=== PATIENT | female | born 1990 | race Caucasian/White ===

== ENCOUNTER 2022-10-14 12:04 | Emergency (ER) | payer BC ==
[2022-10-14 12:54] VITALS: BP 129/71; PULSE 67; RESP 20; TEMP 97.4
[2022-10-14] MEDS ORDERED: SODIUM CHLORIDE 0.9% 1,000 ML IV STA (14:19)
[2022-10-14] MEDS ORDERED: ONDANSETRON 4 MG/2 ML VIAL IVP STA (14:19)
--- NOTE | 2022-10-14 14:23 | ED ---
Nausea/Vomiting/Diarrhea HPI - General Chief complaint: Nausea/Vomiting/Diarrhea Stated complaint: dehydration, 14 wks preg Time Seen by Provider: 10/14/22 14:16 Source: patient, RN notes reviewed, old records reviewed Mode of arrival: ambulatory Limitations: no limitations - History of Present Illness Initial comments: This is a well-appearing 32-year-old female that presents to the emergency room with nausea and vomiting for the past 2 days. She is 14 weeks denies any vaginal bleeding or vaginal discharge. No abdominal pain. No fevers, cough or shortness of breath. She states that her son has been sick with a viral illness as well. She did call her BOTTLE WASHER MACHINE who recommended she come in for IV fluids. She is a . No other medical history. MD complaint: nausea, vomiting -: days(s) (2) Description of Vomiting: watery Associated Abdominal Pain: No Severity scale (1-10): 0 Context: sick contacts Associated Symptoms: nausea/vomiting - Related Data Home Medications Medication Instructions Recorded Confirmed Citalopram Hydrobromide [CeleXA] 10 mg PO DAILY 10/14/22 10/14/22 Usj-Joco-Qsfca Acid 1 cap PO DAILY 10/14/22 10/14/22 [-U Capsule (formulary)] Previous Rx's Medication Instructions Recorded Cephalexin [Keflex] 500 mg PO TID 5 Days #15 cap 10/14/22 Allergies Allergy/AdvReac Type Severity Reaction Status Date / Time No Known Allergies Allergy Verified 10/14/22 15:09 Review of Systems ROS Statement: Those systems with pertinent positive or pertinent negative responses have been documented in the HPI. ROS Other: All systems not noted in ROS Statement are negative. Past Medical History Past Medical History: No Reported History History of Any Multi-Drug Resistant Organisms: None Reported Past Surgical History: Section Past Psychological History: No Psychological Hx Reported Smoking Status: Never smoker Past Alcohol Use History: None Reported Past Drug Use History: None Reported General Exam Limitations: no limitations General appearance: alert, in no apparent distress Head exam: Present: atraumatic, normocephalic Eye exam: Present: normal appearance. Absent: scleral icterus, conjunctival injection, periorbital swelling, periorbital tenderness Neck exam: Present: full ROM. Absent: tenderness, meningismus Respiratory exam: Present: normal lung sounds bilaterally. Absent: respiratory distress, wheezes, rales, rhonchi, stridor, chest wall tenderness, accessory mus chantell use Cardiovascular Exam: Present: regular rate GI/Abdominal exam: Present: soft. Absent: distended, tenderness, rigid Extremities exam: Present: normal capillary refill. Absent: pedal edema Back exam: Present: full ROM. Absent: tenderness, CVA tenderness (R), CVA tenderness (L) Neurological exam: Present: alert, oriented X3 Psychiatric exam: Present: normal affect, normal mood Skin exam: Present: warm, dry, normal color. Absent: cyanosis, diaphoretic, petechiae, pallor Course Vital Signs 10/14/22 12:50 Temperature 97.4 F L Pulse Rate 67 Respiratory 20 Rate Blood Pressure 129/71 O2 Sat by Pulse 99 Oximetry Medical Decision Making - Medical Decision Making 32-year-old well-appearing female presents with nausea and vomiting for the past 2 days. 14 weeks , denies any vaginal bleeding or vaginal discharge. No abdominal pain. No fevers, cough or shortness of breath. She states that her son has been sick with a viral illness as well. BOTTLE WASHER MACHINE recommended she come in for IV fluids. Labs show no evidence of leukocytosis. Hemoglobin and hematocrit are stable. Electrolytes are unremarkable. Coronavirus negative. Urinalysis shows bacteria and therefore patient will be placed on Keflex for asymptomatic bacteriuria. Patient was given IV fluids and Zofran. No further vomiting or nausea. She was given a take home pack of Zofran for her nausea. Encouraged to increase her fluid intake. Follow-up with her primary doctor. She is agreeable to this plan of care. Case discussed with Dr. Dominguez - Lab Data Result diagrams: 10/14/22 14:45 10/14/22 14:45 Lab Results 10/14/22 10/14/22 10/14/22 Range/Units 14:14 14:45 14:45 WBC 5.3 (3.8-10.6) k/uL RBC 4.20 (3.80-5.40) m/uL Hgb 13.2 (11.4-16.0) gm/dL Hct 37.2 (34.0-46.0) % MCV 88.6 (80.0-100.0) fL MCH 31.6 (25.0-35.0) pg MCHC 35.6 (31.0-37.0) g/dL RDW 12.5 (11.5-15.5) % Plt Count 226 (150-450) k/uL MPV 7.7 Neutrophils % 80 % Lymphocytes % 11 % Monocytes % 6 % Eosinophils % 1 % Basophils % 0 % Neutrophils # 4.3 (1.3-7.7) k/uL Lymphocytes # 0.6 L (1.0-4.8) k/uL Monocytes # 0.3 (0-1.0) k/uL Eosinophils # 0.0 (0-0.7) k/uL Basophils # 0.0 (0-0.2) k/uL Sodium 135 L (137-145) mmol/L Potassium 3.8 (3.5-5.1) mmol/L Chloride 106 (98-107) mmol/L Carbon Dioxide 24 (22-30) mmol/L Anion Gap 5 mmol/L BUN 5 L (7-17) mg/dL Creatinine 0.42 L (0.52-1.04) mg/dL Est GFR (CKD-EPI)AfAm >90 (>60 ml/min/1.73 sqM) Est GFR (CKD-EPI)NonAf >90 (>60 ml/min/1.73 sqM) Glucose 92 (74-99) mg/dL Calcium 8.8 (8.4-10.2) mg/dL Total Bilirubin 0.5 (0.2-1.3) mg/dL AST 53 H (14-36) U/L ALT 55 H (4-34) U/L Alkaline Phosphatase 66 (38-126) U/L Total Protein 6.3 (6.3-8.2) g/dL Albumin 3.8 (3.5-5.0) g/dL Amylase 44 (30-110) U/L Lipase 151 (23-300) U/L Urine Color Yellow Urine Appearance Cloudy H (Clear) Urine pH 5.5 (5.0-8.0) Ur Specific [place] 1.027 (1.001-1.035) Urine Protein 1+ H (Negative) Urine Glucose (UA) Negative (Negative) Urine Ketones 2+ H (Negative) Urine Blood Negative (Negative) Urine Nitrite Negative (Negative) Urine Bilirubin Negative (Negative) Urine Urobilinogen 3.0 (<2.0) mg/dL Ur Leukocyte Esterase Negative (Negative) Urine RBC 2 (0-5) /hpf Urine WBC 4 (0-5) /hpf Ur Squamous Epith Cells 4 (0-4) /hpf Urine Bacteria Many H (None) /hpf Urine Mucus Many H (None) /hpf Coronavirus (PCR) (Not Detectd) 10/14/22 Range/Units 14:59 WBC (3.8-10.6) k/uL RBC (3.80-5.40) m/uL Hgb (11.4-16.0) gm/dL Hct (34.0-46.0) % MCV (80.0-100.0) fL MCH (25.0-35.0) pg MCHC (31.0-37.0) g/dL RDW (11.5-15.5) % Plt Count (150-450) k/uL MPV Neutrophils % % Lymphocytes % % Monocytes % % Eosinophils % % Basophils % % Neutrophils # (1.3-7.7) k/uL Lymphocytes # (1.0-4.8) k/uL Monocytes # (0-1.0) k/uL Eosinophils # (0-0.7) k/uL Basophils # (0-0.2) k/uL Sodium (137-145) mmol/L Potassium (3.5-5.1) mmol/L Chloride (98-107) mmol/L Carbon Dioxide (22-30) mmol/L Anion Gap mmol/L BUN (7-17) mg/dL Creatinine (0.52-1.04) mg/dL Est GFR (CKD-EPI)AfAm (>60 ml/min/1.73 sqM) Est GFR (CKD-EPI)NonAf (>60 ml/min/1.73 sqM) Glucose (74-99) mg/dL Calcium (8.4-10.2) mg/dL Total Bilirubin (0.2-1.3) mg/dL AST (14-36) U/L ALT (4-34) U/L Alkaline Phosphatase (38-126) U/L Total Protein (6.3-8.2) g/dL Albumin (3.5-5.0) g/dL Amylase (30-110) U/L Lipase (23-300) U/L Urine Color Urine Appearance (Clear) Urine pH (5.0-8.0) Ur Specific [place] (1.001-1.035) Urine Protein (Negative) Urine Glucose (UA) (Negative) Urine Ketones (Negative) Urine Blood (Negative) Urine Nitrite (Negative) Urine Bilirubin (Negative) Urine Urobilinogen (<2.0) mg/dL Ur Leukocyte Esterase (Negative) Urine RBC (0-5) /hpf Urine WBC (0-5) /hpf Ur Squamous Epith Cells (0-4) /hpf Urine Bacteria (None) /hpf Urine Mucus (None) /hpf Coronavirus (PCR) Not Detected (Not Detectd) Disposition Clinical Impression: Asymptomatic bacteriuria during , Nausea/vomiting in Disposition: HOME SELF-CARE Condition: Good Instructions (If sedation given, give patient instructions): Acute Nausea and Vomiting (ED), Urinary Tract Infection in (ED) Additional Instructions: Increase your fluid intake. Take the antibiotics as prescribed for the bact eria found in your urine. Follow-up with your BOTTLE WASHER MACHINE. Return to the emergency room with any new or concerning symptoms. Prescriptions: Cephalexin [Keflex] 500 mg PO TID 5 Days #15 cap Is patient prescribed a controlled substance at d/c from ED?: No Referrals: Lisa Kc MD [STAFF PHYSICIAN] - 1-2 days Time of Disposition: 15:30
[2022-10-14 14:28] LABS: Appearance,Urine Cloudy (Clear); Bacteria,Urine Many /hpf; Bilirubin,Urine Negative (Negative); Blood,Urine Negative (Negative); Color,Urine Yellow; Glucose,Urine (UA) Negative (Negative); Ketones,Urine 2+ (Negative); Leukocyte Esterase,Urine Negative (Negative); Mucus,Urine Many /hpf; Nitrite,Urine Negative (Negative); PH, Urine 5.5 (5.0-8.0); Protein,Urine 1+ (Negative); RBC,Urine 2 /hpf (0-5); Specific Gravity,Urine 1.027 (1.001-1.035); Squamous Epithelial Cell,Urine 4 /hpf (0-4); WBC,Urine 4 /hpf (0-5)
[2022-10-14 14:54] LABS: Basophils % (A) 0 %; Eosinophils % (A) 1 %; HCT 37.2 % (34.0-46.0); HGB 13.2 gm/dL (11.4-16.0); Lymphocytes # (A) 0.6 k/uL (1.0-4.8); Lymphocytes % (A) 11 %; MCH 31.6 pg (25.0-35.0); MCHC 35.6 g/dL (31.0-37.0); MCV 88.6 fL (80.0-100.0); Mean Platelet Volume 7.7; Monocytes # (A) 0.3 k/uL (0-1.0); Monocytes % (A) 6 %; Neutrophils # (A) 4.3 k/uL (1.3-7.7); Neutrophils % (A) 80 %; Platelet Count 226 k/uL (150-450); RDW 12.5 % (11.5-15.5); WBC 5.3 k/uL (3.8-10.6)
[2022-10-14 15:05] LABS: ALT 55 U/L (4-34); AST 53 U/L (14-36); African American GFR (CKD) >90 (>60 ml/min/1.73 sqM); Albumin 3.8 g/dL (3.5-5.0); Alkaline Phosphatase 66 U/L (38-126); Amylase 44 U/L (30-110); Anion Gap 5 mmol/L; Blood Urea Nitrogen 5 mg/dL (7-17); Calcium 8.8 mg/dL (8.4-10.2); Carbon Dioxide 24 mmol/L (22-30); Chloride 106 mmol/L (98-107); Glucose 92 mg/dL (74-99); Lipase 151 U/L (23-300); Non-African American GFR(CKD) >90 (>60 ml/min/1.73 sqM); Potassium 3.8 mmol/L (3.5-5.1); Sodium 135 mmol/L (137-145); Total Bilirubin 0.5 mg/dL (0.2-1.3); Total Protein 6.3 g/dL (6.3-8.2)
[2022-10-14] MEDS ORDERED: ONDANSETRON 4 MG ODT STARTER PACK 2 TAB BTL PO STA (15:49)
== END 2022-10-14 15:54 | disposition home or self-care (01) ==
LOC: EC 12:04
DX: O23.92 Unspecified genitourinary tract infection in pregnancy, second trimester (principal); O21.9 Vomiting of pregnancy, unspecified; Z20.822 Contact with and (suspected) exposure to COVID-19; Z3A.14 14 weeks gestation of pregnancy
CPT/HCPCS: 99284; 96374; 96361; 36415; 80053; 82150; 83690; 85025; 81001; 87635; J2405; S0119

== ENCOUNTER 2023-04-07 06:02 | Inpatient (IN) | payer BC ==
--- NOTE | 2023-04-04 07:37 | P.HPOB ---
History of Present Illness H&P Date: 04/04/23 Chief Complaint: Repeat section This patient is a pleasant 33-year-old 4 para 2 female estimated date of confinement 04/14/2023 estimated gestational age 39-0/7 weeks gestation who is admitted to labor and delivery for repeat section. She has had 2 previous section desires repeat. has been uncomplicated. She has been on low-dose aspirin due to history of gestational hypertension with her first . Blood pressures have been normal this . Review of Systems Genitourinary: Reports Menstruation: Reports amenorrhea Past Medical History Past Medical History: No Reported History History of Any Multi-Drug Resistant Organisms: None Reported Past Surgical History: Section Past Anesthesia/Blood Transfusion Reactions: No Reported Reaction Past Psychological History: No Psychological Hx Reported Smoking Status: Never smoker Past Alcohol Use History: None Reported Past Drug Use History: None Reported Medications and Allergies Home Medications Medication Instructions Recorded Confirmed Type Cephalexin [Keflex] 500 mg PO TID 5 Days #15 cap 10/14/22 Rx Citalopram Hydrobromide [CeleXA] 10 mg PO DAILY 10/14/22 10/14/22 History Nnb-Xabi-Oyxce Acid 1 cap PO DAILY 10/14/22 10/14/22 History [-U Capsule (formulary)] Allergies Allergy/AdvReac Type Severity Reaction Status Date / Time No Known Allergies Allergy Verified 10/14/22 15:09 Exam - OBG Physical Exam Abdomen: bowel sounds normal, no diffuse tenderness, no bruit present, no guarding noted, no hepatomegaly, no splenomegaly, no mass Vulva: both: normal Vagina: normal moisture, no discharge Cervix: no lesion, no discharge Uterus: enlarged Results labs show she is B positive, rubella immune, RPR nonreactive, hepatitis B is negative, HIV is nonreactive, hepatitis C is negative, Glucola was normal, group B strep was negative, most recent ultrasound showed baby to be 6 lbs. 1 oz. and that was at 35 weeks. Assessment and Plan Assessment: This is a pleasant 33-year-old 4 para 2 female 39-0/7 weeks gestation admitted to labor and delivery for elective repeat section. Plan is repeat low transverse section. I discussed the surgery with the patient in detail including the risks of infection, bleeding, possible injury bowel, bladder, vessels, and/or other organs. All the patient's questions are answered and a written consent is obtained. (1) 39 weeks gestation of Status: Acute Code(s): Z3A.39 - 39 WEEKS GESTATION OF SNOMED Code(s): 18795817 (2) Previous delivery affecting Status: Acute Code(s): O34.219 - MATERNAL CARE FOR UNSP TYPE SCAR FROM PREVIOUS DEL SNOMED Code(s): 596728692
[2023-04-07] MEDS ORDERED: OXYTOCIN 10 UNIT/ML 1 ML VIAL IM PRN (06:20)
[2023-04-07] MEDS ORDERED: miSOPROStoL 200 MCG TAB PO PRN (06:20)
[2023-04-07] MEDS ORDERED: CARBOPROST TROMETHAMINE 250 MCG/ML 1 ML AMP IM PRN (06:20)
[2023-04-07] MEDS ORDERED: LACTATED RINGERS 1,000 ML IV ONE (06:20)
[2023-04-07] MEDS ORDERED: METHYLERGONOVINE 0.2 MG/ML 1 ML AMP IM PRN (06:20)
[2023-04-07] MEDS ORDERED: TRANEXAMIC ACID IN NACL,ISO-OS 1,000 MG in EMPTY BAG 1 BAG IV PRN (06:20)
[2023-04-07] MEDS ORDERED: CITRIC ACID-SODIUM CITRATE 15 ML CUP PO ONE (06:20)
[2023-04-07] MEDS ORDERED: LACTATED RINGERS 1,000 ML IV SCH (06:20)
[2023-04-07 07:38] LABS: Basophils % (A) 0 %; Eosinophils # (A) 0.1 k/uL (0-0.7); Eosinophils % (A) 1 %; HCT 35.2 % (34.0-46.0); HGB 12.2 gm/dL (11.4-16.0); Lymphocytes # (A) 1.1 k/uL (1.0-4.8); Lymphocytes % (A) 17 %; MCHC 34.6 g/dL (31.0-37.0); MCV 92.4 fL (80.0-100.0); Mean Platelet Volume 8.5; Monocytes # (A) 0.5 k/uL (0-1.0); Monocytes % (A) 7 %; Neutrophils # (A) 4.9 k/uL (1.3-7.7); Neutrophils % (A) 72 %; Platelet Count 199 k/uL (150-450); RBC 3.81 m/uL (3.80-5.40); RDW 13.8 % (11.5-15.5); WBC 6.9 k/uL (3.8-10.6)
[2023-04-07] MEDS ORDERED: ONDANSETRON 4 MG/2 ML VIAL ONE (07:52)
[2023-04-07] MEDS ORDERED: MORPHINE SULFATE (PF) 0.3 MG/0.3 ML SYR ONE (07:52)
[2023-04-07] MEDS ORDERED: KETOROLAC 30 MG/ML 1 ML VIAL ONE (07:52)
[2023-04-07] MEDS ORDERED: OXYTOCIN 30 UNITS/500 ML NS BAG IV ONE (07:52)
[2023-04-07] MEDS ORDERED: fentaNYL (PF) 50 MCG/ML 2 ML AMP ONE (07:52)
[2023-04-07] MEDS ORDERED: PHENYLEPHRINE-0.9% NACL SYG 1,000 MCG/10 ML SYRINGE ONE (07:52)
[2023-04-07] MEDS ORDERED: ONDANSETRON 4 MG/2 ML VIAL IVP PRN ×2 (08:23→14:18)
[2023-04-07] MEDS ORDERED: diphenhydrAMINE 50 MG/ML 1 ML VIAL IVP PRN ×2 (08:23→14:18)
[2023-04-07] MEDS ORDERED: KETOROLAC 15 MG/ML 1 ML VIAL IVP PRN (08:23)
[2023-04-07] MEDS ORDERED: NALOXONE 0.4 MG/ML 1 ML VIAL IV PRN ×2 (08:23→14:18)
[2023-04-07] MEDS ORDERED: HYDROmorphone 0.5 MG/0.5 ML SYRINGE IVP PRN (08:23)
--- NOTE | 2023-04-07 08:43 | P.OP ---
Date of Procedure: 04/07/23 Preoperative Diagnosis: #1: 39 0/7 weeks . #2: Previous section desires repeat. Postoperative Diagnosis: Same Procedure(s) Performed: Repeat low transverse section Anesthesia: spinal Surgeon: Stevan Kruger Diamond Wheel Edger #1: Sherly Pinedo Estimated Blood Loss (ml): 600 Pathology: none sent Condition: stable Disposition: floor Indications for Procedure: Please see dictated H&P for intimate details of this patient's admission. In brief summary this is a pleasant 33-year-old 4 para 2 female 39-0/7 weeks gestation admitted to labor and delivery for elective repeat section. Patient understands this surgery and risks and risks of infection, bleeding, possible injury bowel, bladder, vessels, and/or other organs. All the patient's questions are answered and a written consent is obtained. Operative Findings: This is a vigorous viable female Apgars 9 and 9 delivery time is 0808 hrs. has spontaneous respiration good cry and grossly appeared normal Description of Procedure: This patient has a Shane catheter placed to straight drain. She is subsequently taken to the operating room where she sat up and spinal anesthetic is administered without incident. She has abdominal prep and drape. After the appropriate timeout, scalpels and taken in the previous Pfannenstiel incision is then incised. A second scalpel is taken down the fascia the fascia scored with a knife. Fascial incision extended bilaterally using the Cummings scissors. The fascia is then dissected off the rectus muscles sharply. Rectus muscles are and the peritoneum identified and entered sharply. Peritoneal incision extended superior and inferior without difficulty. Bladder blade is then placed. Bladder pain to Adeline was taken sharply off the lower uterine segment. Scalpel is then taken and a low transverse uterine incision is made. Using a hemostat I into the uterine cavity bluntly and there is loss of a copious amount of clear fluid. Incision is extended bluntly. The infant's head is then guided through the incision with fundal pressure and delivered. Mouth and nares are bulb suctioned. There is no evidence of a nuchal cord. With more fundal pressure with delivery and rest this 's body. This is a vigorous viable female infant Apgars are 9 and 9 delivery time is 0808 hrs. After delivery of the the umbilical cord is doubly clamped and cut infant is handed off to the nurses in attendance. The placenta is then manually extracted intact. Uterine incision is then demarcated with Valdez clamps and closed using 0 Vicryl running locked fashion 2 layers. Excellent hemostasis is noted. Bladder peritoneum was then reapproximated using a 3-0 Vicryl. Excess fluid is removed from the abdomen and pelvis. Uterus, tubes, ovaries appear normal for term gestation. Uterus is then placed back into the abdomen. The parietal peritoneum was then identified and entered sharply. The rectus muscles reapproximated using 0 Vicryl interrupted fashion. Fascial incision then closed using 0 PDS. Fascial incision is intact and hemostatic. Subcutaneous tissues and closed using a 3-0 Vicryl. Skin is and closed using mateus. All counts are correct 3. There are no complications. and mother are taken together birthing suite in satisfactory condition.
[2023-04-07] MEDS ORDERED: diphenhydrAMINE 25 MG CAP PO PRN (14:18)
[2023-04-07] MEDS ORDERED: METOCLOPRAMIDE 5 MG/ML 2 ML VIAL IVP PRN (14:18)
[2023-04-07] MEDS ORDERED: SIMETHICONE 80 MG CHEWABLE PO PRN (14:18)
[2023-04-07] MEDS ORDERED: ZOLPIDEM 5 MG TAB PO PRN (14:18)
[2023-04-07] MEDS ORDERED: LANOLIN CREAM 5 GM TUBE TOPICAL PRN (14:18)
[2023-04-07] MEDS ORDERED: OXYTOCIN 30 UNITS/500 ML NS 30 UNIT in SALINE 1 500ML.BAG IV SCH (14:18)
[2023-04-07] MEDS: LACTATED RINGERS 1,000 ML IV SCH ×2 (19:20→22:29)
[2023-04-07] MEDS: ACETAMINOPHEN TAB 500 MG TAB PO SCH (19:21)
[2023-04-07] MEDS: SENNOSIDES-DOCUSATE SODIUM 1 EACH TAB PO SCH ×2 (19:21→19:41)
[2023-04-07] MEDS: IBUPROFEN 600 MG TAB PO SCH (19:22)
[2023-04-07] MEDS: KETOROLAC 15 MG/ML 1 ML VIAL IVP SCH (19:41)
[2023-04-08] MEDS: ACETAMINOPHEN TAB 500 MG TAB PO SCH ×4 (00:25→18:06)
[2023-04-08] MEDS: KETOROLAC 15 MG/ML 1 ML VIAL IVP SCH ×2 (04:19→21:59)
[2023-04-08] MEDS: IBUPROFEN 600 MG TAB PO SCH ×4 (04:27→22:54)
--- NOTE | 2023-04-08 06:12 | P.PNOBGPC ---
Subjective - Subjective Patient reports: Reports appetite normal, Reports voiding normally, Reports pain well controlled, Reports ambulating normally : doing well Objective - Vital Signs Latest vital signs: Vital Signs Temp Pulse Resp BP Pulse Ox 04/08/23 04:00 97.8 F 61 16 118/73 98 04/08/23 00:00 98.1 F 62 16 125/75 99 04/07/23 19:00 98.1 F 59 L 16 120/77 96 04/07/23 17:00 16 98 04/07/23 15:29 97.4 F L 54 L 16 120/65 98 04/07/23 15:00 16 04/07/23 12:00 97.2 F L 60 16 115/63 98 04/07/23 11:17 16 04/07/23 10:50 51 L 16 112/65 98 04/07/23 10:15 97.0 F L 53 L 16 124/65 98 04/07/23 09:40 98.2 F 65 16 98 04/07/23 09:30 51 L 16 112/65 99 04/07/23 09:23 16 98 04/07/23 09:15 54 L 16 122/72 98 04/07/23 09:00 64 16 124/58 97 04/07/23 08:45 97.2 F L 56 L 16 115/67 97 04/07/23 06:57 96.5 F L 80 16 97 Intake and Output 04/07/23 04/07/23 04/08/23 14:59 22:59 06:59 Output Total 709 400 Balance -709 -400 Output: Urine 400 400 Output, Quantitative 309 Blood Loss Other: # Voids 1 - Exam Lungs: bilateral: normal Chest: Normal S1, Normal S2 Extremities: Present: normal Abdomen: Present: normal appearance, soft. Absent: distention, tenderness Incision: Present: normal, dry, intact Uterus: Present: normal, firm Assessment and Plan Assessment: Postoperative day #1. Patient is resting without complaints. Vital signs are stable and she is afebrile. Uterus is firm nontender and her incision is intact and dry. CBC is pending at time of this dictation. Patient is tolerating regular diet. Plan is to continue routine postoperative care. Allow the patient to shower, check a CBC, encourage ambulation. (1) 39 weeks gestation of Current Visit: No Status: Acute Code(s): Z3A.39 - 39 WEEKS GESTATION OF SNOMED Code(s): 30530100 (2) Previous delivery affecting Current Visit: No Status: Acute Code(s): O34.219 - MATERNAL CARE FOR UNSP TYPE SCAR FROM PREVIOUS DEL SNOMED Code(s): 446335624
[2023-04-08] MEDS: LACTATED RINGERS 1,000 ML IV SCH (06:30)
[2023-04-08 06:36] LABS: Basophils % (A) 0 %; Eosinophils # (A) 0.2 k/uL (0-0.7); Eosinophils % (A) 2 %; HCT 36.4 % (34.0-46.0); HGB 12.4 gm/dL (11.4-16.0); Lymphocytes # (A) 1.1 k/uL (1.0-4.8); Lymphocytes % (A) 13 %; MCH 32.6 pg (25.0-35.0); Mean Platelet Volume 7.9; Monocytes # (A) 0.7 k/uL (0-1.0); Monocytes % (A) 8 %; Neutrophils # (A) 6.4 k/uL (1.3-7.7); Neutrophils % (A) 75 %; Platelet Count 204 k/uL (150-450); RBC 3.79 m/uL (3.80-5.40); RDW 13.5 % (11.5-15.5); WBC 8.6 k/uL (3.8-10.6)
--- NOTE | 2023-04-08 07:46 | P.PN ---
Progress Note - Text Progress Note Date: 04/08/23 ([id number]) Anesthesia Postop day 1 Subjective: Status Post section with Duramorph. Patient seen and examined. Doing well without complaint. VAS 0. No nausea or vomiting. Mild pruritus tolerable.. Afebrile. Gross lower extremity strength intact. . Without apparent anesthetic complications. Objective: Vital signs reviewed Heart: Regular Rate Lungs: Good chest excursion Abdomen: Appears nondistended Assessment: Status post with Duramorph postop day 1 Plan: Continue current care with your medical management.
[2023-04-08] MEDS: SENNOSIDES-DOCUSATE SODIUM 1 EACH TAB PO SCH ×2 (09:35→21:58)
[2023-04-09] MEDS: ACETAMINOPHEN TAB 500 MG TAB PO SCH ×2 (00:49→09:34)
[2023-04-09] MEDS: IBUPROFEN 600 MG TAB PO SCH ×2 (05:22→11:05)
--- NOTE | 2023-04-09 06:33 | P.PNOBGPC ---
Subjective - Subjective Patient reports: Reports appetite normal, Reports voiding normally, Reports pain well controlled, Reports ambulating normally : doing well Objective - Vital Signs Latest vital signs: Vital Signs Temp Pulse Resp BP Pulse Ox 04/09/23 00:00 98.2 F 70 18 129/83 99 04/08/23 16:00 98.3 F 75 16 128/82 04/08/23 08:30 97.9 F 55 L 16 111/69 97 Intake and Output 04/08/23 04/08/23 04/09/23 14:59 22:59 06:59 Other: # Voids 1 - Exam Lungs: bilateral: normal Chest: Normal S1, Normal S2 Extremities: Present: normal Abdomen: Present: normal appearance, soft. Absent: distention, tenderness Incision: Present: normal, dry, intact Uterus: Present: normal, firm - Labs Labs: Abnormal Lab Results - Last 24 Hours (Table) 04/08/23 Range/Units 06:12 RBC 3.79 L (3.80-5.40) m/uL Assessment and Plan Assessment: Postoperative day #2. Patient is resting without complaints and wishes to go home. Vital signs are stable she's afebrile. Uterus is firm nontender and her incision is intact and dry. My impression this is a normal postoperative course. Plan is to continue routine postoperative care discharge home later today (1) 39 weeks gestation of Current Visit: No Status: Acute Code(s): Z3A.39 - 39 WEEKS GESTATION OF SNOMED Code(s): 13814450 (2) Previous delivery affecting Current Visit: No Status: Acute Code(s): O34.219 - MATERNAL CARE FOR UNSP TYPE SCAR FROM PREVIOUS DEL SNOMED Code(s): 269055943
--- NOTE | 2023-04-09 06:41 | P.DS ---
Providers Date of admission: 04/07/23 06:02 Expected date of discharge: 04/09/23 Attending physician: Stevan Kruger Primary care physician: Lisa Kc - Discharge Diagnosis(es) (1) 39 weeks gestation of Current Visit: No Status: Acute (2) Previous delivery affecting Current Visit: No Status: Acute Hospital Course: Please see dictated H&P for intimate details of this patient's admission. In brief summary this pleasant 33-year-old 4 para 2 female 39 weeks gestation admitted to labor and delivery for elective repeat section. Patient undergoes repeat low transverse section for viable female . Please see dictated delivery note. Postoperative patient does well postoperative 2 cell to be stable for discharge home follow up with me in 1 week. Procedures: Repeat low transverse section Patient Condition at Discharge: Good Plan - Discharge Summary Discharge Rx Participant: Yes New Discharge Prescriptions: New Ibuprofen [Motrin] 600 mg PO Q6H #40 tab oxyCODONE HCL [OxyIR] 5 mg PO Q4HR PRN #18 tab PRN Reason: Pain Scale 4 - 6 No Action Vec-Rigv-Bmhzf Acid [-U Capsule (formulary)] 1 cap PO DAILY Citalopram Hydrobromide [CeleXA] 20 mg PO DAILY Discharge Medication List Citalopram Hydrobromide [CeleXA] 20 mg PO DAILY 10/14/22 [History] Tvm-Yguj-[id number] Acid [-U Capsule (formulary)] 1 cap PO DAILY 10/14/22 [History] Ibuprofen [Motrin] 600 mg PO Q6H #40 tab 04/09/23 [Rx] oxyCODONE HCL [OxyIR] 5 mg PO Q4HR PRN #18 tab 04/09/23 [Rx] Follow up Appointment(s)/Referral(s): Stevan Kruger MD [STAFF PHYSICIAN] - 1 Week (Please see me on April 18 for postoperative appointment @9:15 Am Please see me on May 22 at 9:30 AM for a appointment.) Patient Instructions/Handouts: (DC) Activity/Diet/Wound Care/Special Instructions: No heavy lifting or strenuous activities for 6 weeks. No intercourse or anything per vagina for 6 weeks. Please call if any fever, chills, excessive vaginal bleeding, and/or abdominal pain Discharge Disposition: HOME SELF-CARE
[2023-04-09 09:42] VITALS: BP 121/74; PULSE 73; RESP 16; TEMP 98.3
[2023-04-09] MEDS: SENNOSIDES-DOCUSATE SODIUM 1 EACH TAB PO SCH (09:42)
== END 2023-04-09 11:18 | disposition home or self-care (01) | DRG 788 ==
LOC: 4FBP 06:02
PROVIDERS: ADMIT Obstetrics & Gynecology; ATTEND Obstetrics & Gynecology
PROC: 10D00Z1 Extraction of Products of Conception, Low, Open Approach (ICD-10-PCS; principal; 2023-04-07 08:00)
DX: O34.211 Maternal care for low transverse scar from previous cesarean delivery (principal); L29.9 Pruritus, unspecified; O99.73 Diseases of the skin and subcutaneous tissue complicating the puerperium; Z37.0 Single live birth; Z3A.39 39 weeks gestation of pregnancy; Z79.899 Other long term (current) drug therapy
CPT/HCPCS: 85025; 86850; 86900; 86901